=== PATIENT | female | born 1950 | race Caucasian/White ===

== ENCOUNTER 2018-02-22 05:15 | Emergency (ER) | payer MEDICARE, BC ==
[2018-02-22 06:11] LABS: #Basophils 0.1 thou/uL (0.0-0.2); #Eosinphils 0.1 thou/uL (0.0-0.7); #Lymphocytes 2.7 thou/uL (1.20-3.40); #Monocytes 0.6 thou/uL (0.11-0.59); #Neutrophils 6.8 thou/uL (1.40-6.50); %Basophils 0.9 % (0.0-1.0); %Eosinophils 1.3 % (0.0-10.0); %Monocytes 5.7 % (0.0-10.0); %Neutrophils 66.2 % (42.0-75.0); Mean Corpuscular HGB CONC 31.8 g/dL (32.0-36.0); Mean Corpuscular Hemoglobin 29.6 pg (27.0-31.0); Mean Corpuscular Volume 93.1 fL (78.0-98.0); Mean Platelet Volume 7.1 fL (7.4-10.4); Platelet Count 307 thou/uL (130-400); Red Blood Cell (RBC) Count 4.07 mill/uL (4.20-5.40); White Blood Cell (WBC) Count 10.2 thou/uL (4.8-10.8)
[2018-02-22] MEDS ORDERED: Pantoprazole 40 MG VIAL ONE (06:11)
[2018-02-22 06:12] LABS: Bilirubin Negative (Negative); Blood, Urine Negative (Negative); Clarity CLEAR (Clear); Glucose, Urine (Dipstick) Negative (Negative); Leukocyte Negative (Negative); Nitrite Negative (Negative); Protein, Urine (Dipstick) Negative (Neg-Trace); Specific Gravity, Urine 1.016 (1.002-1.036); Urobilinogen 0.2 mg/dL (0.2-1.0)
[2018-02-22 06:16] LABS: INR-International Normal Ratio 1.1; PTT 23.3 SEC (22.9-36.1); Prothrombin Time 14.3 SEC (12.0-14.7)
[2018-02-22 06:37] LABS: Lactic Acid 2.4 mmol/L (0.5-2.2)
[2018-02-22 06:42] LABS: ALT (SGPT) 10 U/L (8-55); AST (SGOT) 15 U/L (5-34); Albumin 3.6 g/dL (3.4-4.8); Alkaline Phosphatase 72 U/L (40-150); Anion Gap 11 mmol/L (10-20); BUN (Urea Nitrogen) 45 mg/dL (9.8-20.1); Bilirubin, Total 0.8 mg/dL (0.2-1.2); CK (CPK) 57 U/L (29-168); Calc. Creatinine Clearance 0 mL/min (70-130); Carbon Dioxide 25 mmol/L (23-31); Chloride 108 mmol/L (98-107); Estimated GFR-MDRD 53; Globulin 2.4 g/dL (2.4-3.5); Glucose 92 mg/dL (80-115); Lipase 31 U/L (8-78); Potassium 4.2 mmol/L (3.5-5.1); Sodium 140 mmol/L (136-145)
[2018-02-22 06:43] LABS: Bacteria/HPF None Seen HPF (None Seen); Squamous Epithelial 0-3 HPF (0-3); WBC/HPF 0-3 HPF (0-3)
[2018-02-22 06:44] LABS: Hyaline Casts/LPF 0-3 HYALINE CAST LPF (0-3 Hyaline); RBC/HPF 0-3 HPF (0-3)
[2018-02-22 06:46] LABS: CKMB 0.9 ng/mL (0-6.6); Troponin I Less than 0.010 ng/mL (< 0.028)
--- NOTE | 2018-02-22 07:44 | RAD ---
SINGLE VIEW OF THE CHEST: COMPARISON: 10/01/2012. HISTORY: Syncope with coffee grounds emesis and nausea/vomiting. FINDINGS: Single view of the chest shows a normal sized cardiomediastinal silhouette. There is no evidence of c onsolidation, mass, or pleural effusion. The bones are unremarkable. IMPRESSION: No evidence of acute cardiopulmonary disease. POS: [facility]
--- NOTE | 2018-02-22 08:48 | CT ---
PRELIMINARY REPORT/[facility]/EMERGENTY AFTER-HOURS PROCEDURE CT Head Without Intravenous Contrast EXAM DATE/TIME: 02/22/2018 6:31 AM CLINICAL HISTORY: 67 years old, female; Injury or trauma; Fall; Initial encounter; Concussion / head injury; Consciousn ess not specified; Additional info: Fell after standing up from bed, felt lightheaded, hit head on fl oor; Unknown loc. Vomited x1, dark. Currently feels well, mild soreness r posterolateral head. TECHNIQUE: Axial computed tomography images of the head/brain without intravenous contrast. COMPARISON: No relevant prior studies available. FINDINGS: Brain: Mild atrophy and white matter hypodensities compatible with chronic microvascular ischemic hafsa nge. No hemorrhage. Ventricles: Unremarkable. Bones/joints: No acute fracture. Sinuses: Unremarkable. Mastoid air cells: Unremarkable. Soft tissues: Unremarkable. IMPRESSION: No evidence of acute intracranial abnormality. Thank you for allowing us to participate in the care of your patient. Dictated and Authenticated by: Percy Jimenez MD 02/22/2018 6:59 AM Central Time ([place] & [place]) FINAL REPORT EMERGENT AFTER HOURS CT OF THE BRAIN WITHOUT CONTRAST: FINDINGS/IMPRESSION: I agree with the findings and impression given in the preliminary report per [facility] physician. No deon dence of acute intracranial abnormality. POS: [facility]
== END 2018-02-22 07:45 | disposition home or self-care (01) ==
LOC: ERS 05:15
DX: R55 Syncope and collapse (principal); R11.10 Vomiting, unspecified; E78.5 Hyperlipidemia, unspecified; E03.9 Hypothyroidism, unspecified; I10 Essential (primary) hypertension; Z79.899 Other long term (current) drug therapy; Z86.73 Personal history of transient ischemic attack (TIA), and cerebral infarction without residual deficits; W06.XXXA Fall from bed, initial encounter
CPT/HCPCS: 51701; 70450; 71045; 80053; 81001; 82274; 82553; 83605; 83690; 84484; 85025; 85610; 85730; 93005; 96365; A4353; C9113

== ENCOUNTER 2019-12-17 01:52 | Emergency (ER) | payer MEDICARE, BC ==
[2019-12-17] MEDS ORDERED: Sucralfate 1 GM/10 ML UDCUP ONE (02:10)
[2019-12-17 02:16] LABS: #Eosinphils 0.1 thou/uL (0.0-0.7); #Lymphocytes 2.3 thou/uL (1.20-3.40); #Monocytes 0.6 thou/uL (0.11-0.59); %Basophils 0.5 % (0.0-1.0); %Eosinophils 1.6 % (0.0-10.0); %Lymphocytes 25.1 % (21.0-51.0); %Monocytes 6.7 % (0.0-10.0); %Neutrophils 66.1 % (42.0-75.0); Mean Corpuscular HGB CONC 34.1 g/dL (32.0-36.0); Mean Corpuscular Hemoglobin 30.9 pg (27.0-31.0); Mean Corpuscular Volume 90.7 fL (78.0-98.0); Mean Platelet Volume 6.9 fL (7.4-10.4); Platelet Count 441 thou/uL (130-400); Red Blood Cell (RBC) Count 3.88 mill/uL (4.20-5.40); White Blood Cell (WBC) Count 9.1 thou/uL (4.8-10.8)
[2019-12-17 02:37] LABS: ALT (SGPT) 9 U/L (8-55); AST (SGOT) 15 U/L (5-34); Albumin 3.8 g/dL (3.4-4.8); Alkaline Phosphatase 108 U/L (40-110); Anion Gap 14 mmol/L (10-20); BUN (Urea Nitrogen) 10 mg/dL (9.8-20.1); Bilirubin, Total 0.4 mg/dL (0.2-1.2); Calc. Creatinine Clearance 0 mL/min (70-130); Calcium 9.7 mg/dL (7.8-10.44); Carbon Dioxide 22 mmol/L (23-31); Chloride 107 mmol/L (98-107); Estimated GFR-MDRD 52; Globulin 3.2 g/dL (2.4-3.5); Glucose 116 mg/dL (80-115); Lipase 45 U/L (8-78); Potassium 3.6 mmol/L (3.5-5.1); Sodium 139 mmol/L (136-145)
[2019-12-17] MEDS ORDERED: Mag-Al 1200 mg/1200 mg/30 ML UDCUP ONE (02:50)
[2019-12-17] MEDS ORDERED: Lidocaine Viscous Sol 2% 15 ml UD Cup ONE (02:50)
--- NOTE | 2019-12-17 09:39 | RAD ---
PORTABLE CHEST 1 VIEW: DATE: 12/17/2019. TIME: 10:01 AM. HISTORY: Chest pain. COMPARISON: 02/22/2018. FINDINGS: The heart size is normal. The aorta is tortuous. The lungs are expanded without focal areas of cons olidation, pneumothoraces, or pleural effusions. IMPRESSION: No acute process. POS: [facility]
== END 2019-12-17 02:55 | disposition home or self-care (01) ==
LOC: ERS 01:52
DX: K21.9 Gastro-esophageal reflux disease without esophagitis (principal); R07.9 Chest pain, unspecified; E03.9 Hypothyroidism, unspecified; E78.5 Hyperlipidemia, unspecified; I10 Essential (primary) hypertension; Z79.899 Other long term (current) drug therapy; Z86.73 Personal history of transient ischemic attack (TIA), and cerebral infarction without residual deficits
CPT/HCPCS: 36415; 71045; 80053; 83690; 84484; 85025; 93005